=== PATIENT | male | born 1995 | race Caucasian/White ===

== ENCOUNTER 2017-11-07 17:12 | Emergency (ER) | payer OTHER ==
[2017-11-07 17:19] VITALS: BP 127/84; PULSE 99; RESP 18; TEMP 100.5; O2SAT 96
--- NOTE | 2017-11-07 17:59 | EDPHY ---
H & P Time Seen by Provider: 11/07/17 17:24 HPI/ROS: HPI Head injury. 22-year-old male by private vehicle with his parents. This patient reports that he was out with his friends on Wednesday evening. He left restaurant at approximately 7:00 p.m.. He slipped on some snow and ice, falling directly backwards and hitting the back of his head on the concrete. He denies associated loss of consciousness. However since this time he has had neck pain which she describes as the middle of his upper neck as well as a continued headache described this posterior and aching in nature. He also states that he has been nauseous although he has not vomited. He reports his friends telling him that he is slow to respond to questioning as well. ROS: Constitutional: No fever, no chills. No weakness. Eyes: No discharge. No changes in vision. ENT: No sore throat. No nasal congestion or rhinorrhea. Respiratory: No cough. No shortness of breath. Cardiac: No chest pain, no palpitations. Gastrointestinal: No abdominal pain, no vomiting, no diarrhea. Genitourinary: No hematuria. No dysuria or increased frequency with urination. Musculoskeletal: No back pain. No neck pain. No myalgias or arthralgias. Skin: No rashes. Neurological: No headache. No focal weakness or altered sensation. Past medical history: No significant past medical history. He is on no prescription medications. Social history: Nonsmoker. Student [employer]. Here with parents. Physical Exam: General Appearance: Alert, no distress. This patient is responding to questions appropriately and in full sentences. This patient appears well- hydrated and well-nourished. Head: Normocephalic atraumatic. Face: Facial bones are stable on palpation. Eyes: Pupils equal and round and reactive to light at 4-2 mm bilaterally, no pallor or injection. No lid erythema or edema. ENT, Mouth: Mucous membranes moist. Dentition is intact. No malocclusion of the jaw. No tongue lacerations or abrasions. Pharynx is clear. The bilateral nasal canals are clear. No septal hematoma. Neurological: Motor sensory function is intact. Cranial nerves are normal. Cerebellar function intact. Skin: Warm and dry, no rashes. No lacerations, abrasions or contusions. Musculoskeletal: Neck is supple with upper paraspinal tenderness on palpation bilaterally at C2 through C4. The trachea is midline. No midline cervical, thoracic, lumbar or sacral tenderness on palpation. No flank tenderness on palpation. Extremities are symmetrical, full range of motion. All joints in the bilateral upper and bilateral lower extremities range without pain or impingement. No tenderness on palpation of the long bones in the bilateral upper and bilateral lower extremities. Psychiatric: No agitation. No depression. Database: EKG: Imaging: CT scan of head without contrast: Negative. Results were discussed with staff radiologist Dr. Jim Gordon. CT scan of cervical spine without contrast: Negative. Results were discussed with staff radiologist Dr. Jim Gordon. Procedures: Emergency department course: Vital signs reviewed. The patient is borderline mildly febrile at 38.1. Vital signs are otherwise normal. The patient's presentation is consistent with a concussion syndrome. However given his upper neck tenderness as well as his ongoing headache and nausea the parents are requesting imaging. I think this is reasonable. CT of head and cervical spine without contrast have been ordered. Patient and parents endorse. Patient was placed in a cervical collar pending imaging results. 6:30 p.m., patient re-evaluated. Results of CT imaging discussed with him and his family. The patient is up and ambulatory with a normal gait. His presentation is consistent with a concussion syndrome. I discussed follow-up with Neurology. I also explained that he may have a viral syndrome given his mild fever coincidentally on top of his head injury. Supportive care and fever control discussed. Return to emergency department precautions were thoroughly reviewed. Head injury precautions thoroughly reviewed. All of their questions were answered. The family feels comfortable taking him home and he feels safe being discharged. Patient discharged in good condition with family. Differential Diagnosis: The differential diagnosis on this patient includes but is not limited to concussion syndrome, viral syndrome. Traumatic brain injury, epidural hematoma , subdural hematoma, traumatic subarachnoid hemorrhage, cervical spine fracture/ subluxation/dislocation, other significant traumatic injury unlikely. This represents a partial list of diagnoses considered. These considerations are based on history, physical exam, past history, reassessment and diagnostic testing. Smoking Status: Never smoked Constitutional: Initial Vital Signs Temperature (C) 38.1 C 11/07/17 17:16 Heart Rate 99 11/07/17 17:16 Respiratory Rate 18 11/07/17 17:16 Blood Pressure 127/84 H 11/07/17 17:16 O2 Sat (%) 96 11/07/17 17:16 O2 Delivery Mode Room Air Allergies/Adverse Reactions: No Known Allergies Allergy (Unverified 11/07/17 17:16) Home Medications: Medication Instructions Recorded NK [No Known Home Meds] 11/07/17 Departure - Departure Disposition: Home, Routine, Self-Care Clinical Impression: Concussion, Head injury, Fever Condition: Good Instructions: Fever in Adults (ED), Concussion (ED) Additional Instructions: Read and follow provided instructions. Follow-up with your primary care physician in 1-2 days for re-evaluation. I have also provided you with a Neurology referral to be evaluated and treated for concussion syndrome. Ibuprofen dosin mg every 6 hours with meals for the next 3 days only. Take only as needed for headache or other pain. Return to the emergency department for worsening symptoms, worsening headache, vomiting, high fever or other serious concerns. Referrals: PRIMO WASHINGTON [Primary Care Provider] - As per Instructions Yordan Orellana DO [Medical Doctor] - As per Instructions
== END 2017-11-07 18:59 | disposition home or self-care (01) ==
DX: S06.0X0A Concussion without loss of consciousness, initial encounter (principal); R50.9 Fever, unspecified; W00.0XXA Fall on same level due to ice and snow, initial encounter; Y92.511 Restaurant or cafe as the place of occurrence of the external cause; Y93.89 Activity, other specified